=== PATIENT | male | born 1955 | race Caucasian/White ===

== ENCOUNTER 2017-07-07 20:40 | Emergency (ER) | payer SELFPAY ==
[2017-07-07 20:51] VITALS: BP 126/79
--- NOTE | 2017-07-07 21:29 | UC ---
Skin Complaint HPI - HPI Summary HPI Summary: Patient has a cut on his thumb that started as a paper cut and has now increased in size and pressure over the past day. he had it covered in a bandaid , the area is white and there is a purple area in the center, Hx of DM - History of Current Complaint Chief Complaint: UCUpperExtremity Time Seen by Provider: 07/07/17 21:08 Stated Complaint: SKIN ISSUE RIGHT THUMB Hx Obtained From: Patient Onset/Duration: Sudden Onset, Lasting Days Skin Exposure Onset/Duration: Days Ago Timing: Constant Onset Severity: Mild Current Severity: Moderate Location: Hand (Left) Character: Swelling, Raised Aggravating Factor(s): Touch Related History: Other: - infected cut - Allergy/Home Medications Allergies/Adverse Reactions: Allergies Allergy/AdvReac Type Severity Reaction Status Date / Time No Known Allergies Allergy Verified 07/07/17 20:51 Home Medications: Home Medications metFORMIN* [Glucophage 500 MG TAB *] 500 mg PO BID 07/07/17 [History Confirmed 07/07/17] Review of Systems Constitutional: Negative Skin: Other - cut on thumb Eyes: Negative ENT: Negative Respiratory: Negative Cardiovascular: Negative Gastrointestinal: Negative Genitourinary: Negative Motor: Negative Neurovascular: Negative Musculoskeletal: Negative Neurological: Negative Psychological: Negative Is Patient Immunocompromised?: No All Other Systems Reviewed And Are Negative: Yes PMH/Surg Hx/FS Hx/Imm Hx Previously Healthy: Yes - Surgical History Surgical History: None - Family History Known Family History: Positive: Cardiac Disease, Hypertension - Social History Alcohol Use: None Substance Use Type: None Smoking Status (MU): Never Smoked Tobacco - Immunization History Most Recent Tetanus Shot: 2010 Physical Exam Triage Information Reviewed: Yes Appearance: Well-Appearing, Well-Nourished, Pain Distress Vital Signs: Initial Vital Signs Temp 98.1 F 07/07/17 20:46 Pulse 89 07/07/17 20:46 Resp 14 07/07/17 20:46 BP 126/79 07/07/17 20:46 Pulse Ox 97 07/07/17 20:46 Vital Signs Reviewed: Yes Eye Exam: Normal ENT Exam: Normal Dental Exam: Normal Neck exam: Normal Neck: Positive: Supple, Nontender, No Lymphadenopathy Respiratory Exam: Normal Respiratory: Positive: Chest non-tender, Lungs clear, Normal breath sounds Cardiovascular Exam: Normal Cardiovascular: Positive: RRR, No Murmur, Pulses Normal Abdominal Exam: Normal Abdomen Description: Positive: Nontender, No Organomegaly, Soft Bowel Sounds: Positive: Absent Musculoskeletal: Positive: Strength Intact, ROM Intact, No Edema Neurological Exam: Normal Psychological Exam: Normal Skin: Positive: Other - small cut on left thumb, area is raise, and macerated, appears to have a purple area in the center Course/Dx - Course Course Of Treatment: hx obtained, exam performed, meds reviewed, area cleansed, ABx prescribed. - Differential Diagnoses - Skin Complaint Differential Diagnoses: Abscess, Cellulitis - Diagnoses Provider Diagnoses: infected wound. diabetes Discharge - Discharge Plan Condition: Stable Disposition: HOME Patient Education Materials: Wound Infection (ED) Additional Instructions: 1. soak the finger twice a day in very warm water 2. dry completely and use the antibiotic as prescribed. 3. Follow up if not improving.
[2017-07-07] MEDS ORDERED: Cephalexin CAP* 500 MG PO ONE (21:34)
== END 2017-07-07 21:55 | disposition home or self-care (01) ==
LOC: UCCORT 20:40
DX: S61.011A Laceration without foreign body of right thumb without damage to nail, initial encounter (principal); L08.9 Local infection of the skin and subcutaneous tissue, unspecified; W26.2XXA Contact with edge of stiff paper, initial encounter; Y93.9 Activity, unspecified; Y92.9 Unspecified place or not applicable; E11.9 Type 2 diabetes mellitus without complications; Z79.84 Long term (current) use of oral hypoglycemic drugs
CPT/HCPCS: 99202; A9270-GY; G0463